=== PATIENT | female | born 1980 | race Caucasian/White ===

== ENCOUNTER 2017-02-11 17:54 | Emergency (ER) | payer MEDICAID ==
[~2017-02-11] VITALS: Ht 167.6 cm; Wt 100.5 kg
[~2017-02-11 17:54] MED LIST: ASPI-650; TOPROL
[2017-02-11 18:07] VITALS: Ht 167.6 cm; Wt 100.5 kg
[2017-02-11] MEDS ORDERED: TRAM50TA2 PO (19:06)
[2017-02-11] MEDS ORDERED: IBUP400T22 PO (19:06)
[2017-02-11] MEDS ORDERED: CYCL-319 PO (19:06)
[2017-02-11] MEDS ORDERED: DILT240C79 PO (19:10)
[2017-02-11] MEDS ORDERED: WARF5TAB72 PO (19:10)
--- NOTE | 2017-02-11 19:12 | ERD ---
ER Documentation Chief Complaint Date/Time DATE: 02/11/17 TIME: 19:08 Chief Complaint Complains of headache and neck pain x 5 days HPI 36-year-old female presents here in emergency department for complaints of neck pain for 5 days, patient was doing laundry, got hit by washing machine door in the left side of the neck area and the base of the head. Patient did not lose consciousness of the injury. Patient describes the pain as throbbing pain, 6/ 10 and is worst with movement, accompanied with muscle spasm in the left side of the neck area. Patient did not lose consciousness of the injury. Patient denies any nausea vomiting. Patient denies any blurry vision. Patient denies any dizziness. Patient denies any numbness or tingling. Patient did not take any medications to help her symptoms. ROS All systems reviewed and are negative except as per history of present illness. Medications Home Meds Active Scripts Hydrocodone/Acetaminophen (Calcium 5-325 Tablet) 1 Each Tablet, 1 TAB PO Q6H Y for SEVERE PAIN LEVEL 7-10, #20 TAB Prov:CHERRIE STONER [employer]ER 02/11/17 Cyclobenzaprine Hcl* (Cyclobenzaprine Hcl*) 10 Mg Tablet, 10 MG PO TID, #15 TAB Prov:CHERRIE STONER [employer] ADVISER 02/11/17 Reported Medications Warfarin Sodium* (Coumadin*) Unknown Strength Tablet, PO DAILY, #10 TAB 02/11/17 Diltiazem Hcl* (Cardizem CD*) Unknown Strength Cap.sr.24h, PO DAILY, #15 CAP 02/11/17 Aspirin (Aspirin) 81 Mg Tablet 05/16/11 [Toprol] No Conflict Check 02/27/11 Allergies Allergies: Coded Allergies: No Known Drug Allergies (Verified Allergy, Mild, 08/13/13) PMhx/Soc History of Surgery: Yes (CAESARIAN SECTION 1998) Anesthesia Reaction: No Hx Neurological Disorder: No Hx Respiratory Disorders: No Hx Cardiac Disorders: Yes (heart disease) Hx Psychiatric Problems: No Hx Miscellaneous Medical Probl: No Hx Alcohol Use: No Hx Substance Use: No Hx Tobacco Use: No FmHx Family History: No coronary disease, No diabetes, No other Physical Exam Vitals Vital Signs Date Time Temp Pulse Resp B/P Pulse Ox O2 Delivery O2 Flow Rate FiO2 02/11/17 18:07 98.4 71 20 164/79 96 Physical Exam GENERAL: The patient is well developed and appropriate for usual state of health, in no apparent distress. NECK: Muscle spasms noted in the left paraspinal aspect of the cervical spine, able to do full range of motion without any restriction. Mild tenderness on palpation the base of the neck. No ecchymosis noted. No deformity noted CHEST: Clear to auscultation bilaterally. There are no rales, wheezes or rhonchi. HEART: Regular rate and rhythm. No murmurs, clicks, rubs or gallops. No S3 or S4. ABDOMEN: Soft, nontender and nondistended. Good bowel sounds. No rebound or guarding. No gross peritonitis. No gross organomegaly or masses. No Kline sign or McBurney point tenderness. BACK: No midline or flank tenderness. EXTREMITIES: Equal pulses bilaterally. There is no peripheral clubbing, cyanosis or edema. No focal swelling or erythema. Full range of motion. Grossly neurovascularly intact. NEURO: Alert and oriented. Cranial nerves 2-12 intact. Motor strength in all 4 extremities with 5/5 strength. Sensation grossly intact. Normal speech and gait. SKIN: There is no apparent rash or petechia. The skin is warm and dry. HEMATOLOGIC AND LYMPHATIC: There is no evidence of excessive bruising or lymphedema. No gross cervical, axillary, or inguinal lymphadenopathy. Procedures/MDM Medical Decision Making: Patient's pain is most likely consistent with a neck contusion or a sprain. There is no suspicion for neurovascular compromise. Patient has intact sensation and circulation of the affected and distal extremities. There is low suspicion for septic arthritis. Patient does not have any fever. Radiology exams not indicated at this time. Neurologic exam is normal, low suspicion for neurologic emergencies at this time. Disposition: Home. Patient is given prescription for Calcium for severe pain, Flexeril for muscle spasms. Patient is on Coumadin, was advised to see primary care doctor for possible checking a PT/INR regularly while on new medication added on.. Patient was advised to elevate the affected area and apply ice on affected area. Patient was advised that if symptoms are worse, numbness, tingling, high fever, unable to move joint, worsening symptoms, to return to emergency department immediately. Otherwise, patient is advised to follow up with the primary care doctor in 5-7 days for reevaluation of symptoms. Departure Diagnosis: Primary Impression: Neck pain Condition: Stable Patient Instructions: Neck Sprain/Strain CHERRIE STONER NP Feb 11, 2017 19:12 CHERRIE STONER NP Feb 11, 2017 19:12
[2017-02-11] MEDS ORDERED: HYDR-906 PO (20:24)
== END 2017-02-11 19:39 | disposition home or self-care (01) ==
LOC: FTE 17:54
DX: M54.2 Cervicalgia (principal); Z79.01 Long term (current) use of anticoagulants; Z79.82 Long term (current) use of aspirin
CPT/HCPCS: 99283

== ENCOUNTER 2018-03-08 15:35 | Emergency (ER) | END 2018-03-08 19:10 | disposition home or self-care (01) ==